=== PATIENT | female | born 1955 | race Caucasian/White ===

== ENCOUNTER 2025-03-23 06:18 | Emergency (ER) | payer MEDICARE, SELFPAY ==
[2025-03-23 06:26] VITALS: BP 139/94
--- NOTE | 2025-03-23 06:52 | ED.GENMED ---
History of Present Illness
General
Chief Complaint: Chest Pain
Source: patient
Exam Limitations: none
Time Seen by Provider: 03/23/25 06:33
History of Present Illness
History of Present Illness:
69-year-old female presents with the onset of left-sided neck pain with some radiation to the left upper back and extending to the upper left chest. Started 2 AM. Patient was fine when she went to bed. Symptoms are slightly worse with lying down.
No pleuritic pain no shortness of breath no nausea or diaphoresis. No numbness tingling or weakness of her arms and legs. Symptoms have been constant since 2 AM but improved slightly.
Past History
Past History
ED Past Medical History: Hypercholesterolemia
Social History
Tobacco: Non-smoker
Review of Systems
Review of Systems
All Other Systems: Not applicable
Constitutional: Denies fever or chills
Respiratory: Reports no symptoms
ABD/GI: Reports no symptoms
Phy Exam
Physical Exam
Physical Exam:
GENERAL: Alert and oriented in no apparent distress
EYE: Orbits normal.
NECK: Supple, no carotid bruit
CARDIAC: Regular rate and rhythm without any obvious murmurs. Good strong pulses bilaterally to the upper extremities
LUNGS: Clear breath sounds,normal
ABDOMEN: Soft, without focal tenderness or distention
NEUROLOGICAL: Alert and oriented , grossly non-focal
SKIN: Warm and dry, no rash or lesion, no discoloration, skin intact.
MUSCULOSKELETAL: No edema,no deformity.Good color
PSYCH: Normal and appropriate interaction.
Scores
Heart Score for Chest Pain Patients
STEMI patient?: No
History: Slightly or Non-Suspicious
ECG: Normal
Age: >/= 65 years
Risk Factors: 1 or 2 Risk Factors
Troponin: </= Normal Limit
Heart Score for Chest Pain Patients: 3
Heart Score Risk: 2.5% MACE over next 6 weeks
Course
Orders/Labs/Results
Orders:
Orders
03/23/25 06:21
EKG [Electrocardiogram (*1)] Urgent
Reason for Study: Chest Pain
EKG- Treatment ONCE
03/23/25 06:51
Cardiac Monitoring- Treatment ONCE
IV Insert/Care/Rem.- Treatment PRN
CR Chest - 2 Views Urgent
Comment:
Reason For Exam: cp
Pulse Ox/cont/shift [RESP] Stat
Quantity: 1
03/23/25 07:28
Basic Metabolic Panel Urgent
Complete Blood Count/With Diff Urgent
D-Dimer Urgent
Troponin I Urgent
03/23/25 09:19
EKG- Treatment ONCE
03/23/25 10:26
Troponin I Urgent
03/23/25 10:30
Electrocardiogram (*1) Stat
Reason for Study: Other
Other Reason for Exam: chest pain
Abnormal Lab Results
03/23/25
07:28
MPV 10.7 H fL
(7.4-10.4)
Neutrophils % 76.8 H %
(42.2-75.2)
Lymphocytes % 15.1 L %
(20.5-51.1)
BUN 21 H mg/dl
(7-17)
03/23/25 07:28
03/23/25 07:28
Vital Signs
Initial and Last Documented VS:
Initial Vital Signs
Temp Pulse Resp BP Pulse Ox
97.7 F 93 18 139/94 99
03/23/25 06:26 03/23/25 06:26 03/23/25 06:26 03/23/25 06:26 03/23/25 06:26
Last Documented Vital Signs
Temp Pulse Resp BP Pulse Ox
97.7 F 70 13 104/67 95
03/23/25 06:26 03/23/25 11:00 03/23/25 08:30 03/23/25 11:00 03/23/25 11:00
MDM/Problems Addressed
Differential Diagnosis Includes:
Patient in no distress. Nontoxic. Differential would include cardiac. Unlikely. Continual symptoms since 2 AM. Normal EKG. Patient walks frequently and is in great shape with no symptoms. However cardiac workup in progress. To dissection.
Again highly likely. This is not a searing pain or tearing pain. She is in no distress. No risk factors. Will check D-dimer as a screen and if negative chest x-ray. If positive will go on to CT scan. Same would be included for pulmonary
emboli. Very unlikely. Will use D-dimer as a screening.
*Pulse Oximetry
SaO2: 99
Oxygen Mode of Delivery: Room air
Patient hypoxic: no
*Critical Care Note
Total Time (30-74mins, 75-104mins- exclusive of procedures): Not Applicable
Update Note
Update Note:
Patient is remaining clinically stable and nontoxic. Repeat EKG normal sinus rhythm with no acute changes. Repeat troponin negative. D-dimer negative. No acute findings on x-ray. Neurologically stable. No carotid bruit. Nothing to suspect
carotid dissection. Stable for discharge to follow-up
ED Attending Note
-
Portions of this chart may have been created with voice recognition software.� Occasional wrong word or��sound alike� substitutions may have occurred due to the inherent limitations of voice recognition software.
Discharge Plan
Departure
Patient Disposition: Home (Routine Discharge)
Date of Disposition: 03/23/25
Time of Disposition: 11:09
Patient with high blood pressure during this ER visit?: Yes
Discharge Problem:
Left neck/upper chest pain
Instructions: Chest pain (DC), BLOOD PRESSURE
Referrals:
NONE,* [Family Provider, Internal Medicine]
Activity Restrictions/Additional Instructions:
Return with worsening pain worsening chest pain shortness of breath, any neurologic symptoms etc.
Follow-up closely with your primary physician
Interventions
Interventions:
*Risk Screen - Suicide Last Done: 03/23/25 06:26
*General Assessment Last Done: 03/23/25 06:26
*Neglect/Abuse Screening Last Done: 03/23/25 06:26
*ED- Fall Risk Assessment Last Done: 03/23/25 07:40
*ED COVID-19 Vaccine History Last Done: 03/23/25 07:40
*Nursing Disposition Last Done: 03/23/25 11:30
ED- Cardiac Assessment Last Done: 03/23/25 07:40
Discharge Date and Time
Discharge Date/Time: 03/23/25 11:31
Print Language: [email or web address]
[2025-03-23 07:40] VITALS: BMI 19.8
[2025-03-23 07:42] VITALS: BP 119/81
[2025-03-23 07:49] LABS: Hematocrit 37.8 % (37.0-47.0); Hemoglobin 12.8 g/dL (12.0-16.0); Mean Corp Hgb Conc. 33.9 g/dL (33.0-37.0); Mean Corpuscular Volume 87.7 fL (81.0-99.0); Nucleated Red Blood Cells % 0 %; Platelet Count 190 10^3/uL (130-400); Red Cell Dist. Width 11.9 % (11.5-14.5)
[2025-03-23 08:00] VITALS: BP 121/75
[2025-03-23 08:01] LABS: Blood Urea Nitrogen 21 mg/dl (7-17); Calcium 9.8 mg/dl (8.4-10.2); Carbon Dioxide 27 mmol/L (22-30); Chloride 106 mmol/L (98-107); Estimated Creatinine Clearance 54 ml/min; Glucose 94 mg/dl (70-99); Potassium 4.1 mmol/L (3.5-5.1); Sodium 140 mmol/L (135-145); eGFR > 60.00
[2025-03-23 08:12] LABS: Troponin I < 0.012 ng/ml
[2025-03-23 08:38] LABS: D-Dimer < 0.27 ug/mlFEU (0.00-0.50)
[2025-03-23 09:00] VITALS: BP 115/77
[2025-03-23 10:00] VITALS: BP 113/69
[2025-03-23 11:00] VITALS: BP 104/67
[2025-03-23 11:03] LABS: Troponin I < 0.012 ng/ml
== END 2025-03-23 11:31 | disposition home or self-care (01) ==
LOC: EMR 06:18
PROVIDERS: EMERGENCY PHYSICIAN Emergency Medicine
DX: R07.89 Other chest pain (principal); M54.2 Cervicalgia; E78.00 Pure hypercholesterolemia, unspecified
CPT/HCPCS: 99285; 71046; 80048; 84484; 85025; 85379; 93005